=== PATIENT | male | born 1980 | race Two or more races ===

== ENCOUNTER 2016-06-27 11:42 | Emergency (ER) | payer SELFPAY ==
[2016-06-27 13:17] LABS: BASOPHIL# 0.1 X10e3 (0-0.3); EOSINOPHIL% 0.5 % (0.0-7.0); HEMATOCRIT 41.9 % (38.0-50.0); HEMOGLOBIN 14.2 gm/dL (13.0-16.0); LYMPHOCYTE# 0.5 X10e3 (1.0-3.5); LYMPHOCYTE% 8.9 % (17.0-45.0); MEAN CELL VOLUME 90.9 FL (83-96); MEAN CORPUSCULAR HEMOGLOBIN 30.7 PG (28-34); MEAN CORPUSCULAR HGB CONC 33.8 g/dL (30-36); MEAN PLATELET VOLUME 12.8 FL (6.5-11.5); MONOCYTE# 0.3 X10e3 (0-1.0); MONOCYTE% 5.1 % (3.0-12.0); NEUTROPHIL# 4.9 X10e3 (1.5-7.1); NEUTROPHIL% 84.5 % (40-75); PLATELET COUNT 116 X10e3 (140-420); RED BLOOD COUNT 4.61 X10e (3.90-5.60); RED CELL DISTRIBUTION WIDTH 13.7 % (11.0-15.5); WHITE BLOOD COUNT 5.8 X10e3 (4.0-10.5)
[2016-06-27 13:18] LABS: DIFF IND NO
[2016-06-27 13:42] LABS: BUN/CREATININE RATIO 8.75; CALCIUM SERUM 8.8 mg/dL (8.4-10.2); CREATININE SERUM 0.8 mg/dL (0.6-1.4)
[2016-06-27 14:04] LABS: POTASSIUM 2.8 mmol/L (3.5-5.1)
== END 2016-06-27 16:23 | disposition home or self-care (01) ==
LOC: CED 11:42
PROVIDERS: Emergency Medicine
DX: F10.10 Alcohol abuse, uncomplicated (principal); Y90.7 Blood alcohol level of 200-239 mg/100 ml; E87.6 Hypokalemia
CPT/HCPCS: 80048; 85025; 99283; G0480